=== PATIENT | male | born 1970 | race Hispanic/Latino ===

== ENCOUNTER 2020-09-20 09:12 | Emergency (ER) | payer BC ==
[2020-09-20 09:57] LABS: Absolute Lymphocytes (CBC) 1.5 K/uL (0.7-4.9); Basophils % 0.5 % (0-1.3); Lymphocytes % 29.7 % (15.3-44.8); MPV 9.9 fL (7.6-11.3); RBC Red Blood Cell Count 5.05 M/uL (4.33-5.43)
--- OUTSIDE RECORDS SUMMARY | 2020-09-20 09:59 | XMS REPORT ---
:1970 Author Organization [facility] Address [address] [place], [address] [place] [address] Care Team Providers Name Role Phone Brian Soria Unavailable [phone] PROBLEMS Type Condition ICD9-CM [id number] Onset Condition SNOMED Code Notes Code Code Dates Status Problem Erectile N52.9 Active 282281748 dysfunction Problem Mixed E78.2 Active 309936514 hyperlipidemia Problem Gastro-esophageal K21.9 Active 849572996 reflux disease without esophagitis Problem Anxiety and F41.8 Active 912395546 depression Problem Carpal tunnel G56.00 Active 83898822 syndrome ALLERGIES No Known Allergies ENCOUNTERS from 1970 to 2020-09-03 Encounter Location Date Provider Diagnosis [facility] [place] [address] Aug, Brian Soria Well adul t on routine [address] Family [address] [facility] jennifer ck Z00.00 ; [place] [address] Need for influ aurelio vaccination Z23 ; Fatigue, unspec ified type R53.83 and Encounter for administration of vaccine Z23 IMMUNIZATIONS Vaccine Route Administration Date Status Afluria IM Intramuscular Jul 04, 2019 Administered Afluria IM Intramuscular Aug 30, 2018 Administered Flucelvax - single dose syringe IM Intramuscular Sep 03, 2020 Administered SOCIAL HISTORY Tobacco Use: Social History Observation Description Date Details (start date - stop date) Never Smoker Sex Assigned At : Social History Observation Description Sex Assigned At Unknown Alcohol Screen Question Answer Notes Did you have a drink containing alcohol in the past year? No Points 0 Interpretation Negative Tobacco Use/Smoking Question Answer Notes Are you a never smoker REASON FOR REFERRAL No Information VITAL SIGNS Height 65 in Aug, Weight 148.2 lbs Aug, Temperature 97.2 degrees Fahrenheit Aug, BMI 24.66 kg/m2 Aug, Oximetry 98 % Aug, Respiratory Rate 16 /min Aug, Blood pressure systolic 102 mm Hg Aug, Blood pressure diastolic 65 mm Hg Aug, MEDICATIONS Medication SIG (Take, Route, Frequency, Duration) Start Date En d Date Status Tadalafil 20 MG 1 tablet as needed Orally for 30 day(s) Active PROCEDURES No Information RESULTS No Results REASON FOR VISIT Wellness MEDICAL (GENERAL) HISTORY Type Description Date Medical History Erectile dysfunction Medical History Anxiety and depression Medical History Carpal tunnel syndrome Medical History Gastro-esophageal reflux disease without esophagitis Surgical History No Surgical history information Goals Section No Information Health Concerns No Information MEDICAL EQUIPMENT No Information MENTAL STATUS No Information FUNCTIONAL STATUS No Information ASSESSMENTS Encounter Date Diagnosis Notes Aug, Encounter for administration of vaccine (ICD-10 - Z23) Aug, Fatigue, unspecified type (ICD-10 - R53. 83) Aug, Need for influenza vaccination (ICD-10 - Z23) Aug, Well adult on routine health check (ICD- 10 - Z00.00) PLAN OF TREATMENT Treatment Notes Assessment Notes Clinical Notes Well adult on routine health check -- Wellness Exam performe d without /Rectal examination (Asymptomatic) at this time. -- Encourage regular exercise and healthy diet. -- Take a baby aspirin daily: N/A. -- Consider having a flu vaccine every July or August. -- A complete exam is suggested yearly. -- Reminder to always use seat belts. -- It is suggested that lipids (fat and cholesterol) be checked on a yearly basis. The goal here would be to keep the bad cholesterol level (LDL) below 100. -- For colorectal cancer screening, return 1 stool hemoccult cards (test for hidden blood). The [place] [employer] also suggests colonoscopy at age 50 and then every 10 years. If interested in this test, we can refer you to a surgeon or animal hospital clerk. -- It is a good idea to periodically check the scrotum/testis for any new lumps or changes. -- It is a good idea to have a complete eye exam a minimum of every 3 years. Increased eye pressure is called glaucoma and it is a common cause of blindness. -- Encouraged on making dental appointment every 6-12 months for check-up -- Every 10 years, it is zheng to have a tuberculosis skin test (PPD) and D-Tetanus. -- Avoid excessive sun exposure. -- Apply sunscreen when outside. Check skin for any abnormal lesions/moles. Treatment Notes Test Name Order Date Lipid Panel With LDL/HDL Ratio 2020-09-03 UA/M w/rflx Culture, Comp 2020-09-03 Prostate-Specific Ag, Serum 2020-09-03 Testosterone, Free+Total LC/MS 2020-09-03 Hemoglobin A1c 2020-09-03 Comp. Metabolic Panel (14) (CMP) 2020-09-03 Uric Acid, Serum 2020-09-03 CBC With Differential/Platelet 2020-09-03 TSH reflex to T4F 2020-09-03 Next Appt Details 09/2020 TV Reason: Provider Name:Brian Soria, 2020-10-01 1 1:10:00 AM, [address], [place], [address], Insurance Providers Payer Name Payer Payer Insured Name Patient Coverage Covera ge End Address Phone Relationship to Start Date Bryon e Insured [employer] [phone] Al Bryan and Blue [id number] [place] [id number]
--- OUTSIDE RECORDS SUMMARY | 2020-09-20 09:59 | XMS REPORT | Summary of Care ---
:1970 Author Organization [facility] Address [address] [place] [id number] Care Team Providers Name Role Phone Brian Soria Primary Care Provider Encounter Details Date Type Department Care Team Description 08/10/2020 Letter (Out) [facility] Urgent Provider, [facility] Care [address] [place] [phone] Allergies Active Allergy Reactions Severity Noted Date Comments No Known Allergies 11/28/2005 documented as of this encounter (statuses as of 08/10/2020) Medications Medication Sig Dispensed Refills Start Date End Date Status PREDNISONE 20 MG ORAL as above as above 0 11/29/2005 Active TAB meclizine 25 mg Take 1 tablet by 20 tablet 0 08/13/2019 Active tabletIndications: mouth every 6 Peripheral vertigo (six) hours. involving left ear methylPREDNISolone Take by mouth 21 Each 0 08/13/2019 Active (MEDROL, KASHIF,) 4 mg SEE-INSTRUCTIONS tabletsIndications: . follow package Peripheral vertigo directions involving left ear ondansetron 4 mg Take 1 tablet by 20 tablet 0 08/13/2019 Active disintegrating mouth every 8 tabletIndications: (eight) hours as Peripheral vertigo needed for involving left ear Nausea and Vomiting (N/V). 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 Overview: ICD10 Diagnosis Term Clinical Trials Manager Utility Headache 11/29/2005 Overview: ICD10 Diagnosis Term Clinical Trials Manager Utility documented as of this encounter (statuses as of 08/10/2020) Social History Tobacco Use Types Packs/Day Years Used Date Never Assessed Sex Assigned at Date Recorded Not on file documented as of this encounter Last Filed Vital Signs Not on filedocumented in this encounter Plan of Treatment Health Maintenance Due Date Last Done Comments Depression Screening 1980 DTaP,Tdap,and Td Vaccines (1 - 1987 Tdap) COLON CANCER SCREENING ANNUAL 2018 FIT/FOBT COLON CANCER SCREENING FIT DNA 2018 EVERY 3 YEARS COLON CANCER SCREENING 2018 SIGMOIDOSCOPY EVERY 5 YEARS COLONOSCOPY 2018 Colorectal Cancer Screening 2018 Zoster Recombinant Vaccine 2018 (SHINGRIX) (1 of 2) INFLUENZA VACCINE (#1) 2020 PNEUMOCOCCAL 0-64 YEARS COMBINED Aged Out No longer eligible based on SERIES patient's age to complete this topic documented as of this encounter Results Not on filedocumented in this encounter Insurance Payer Benefit Plan Subscriber ID Effective Dates Phone Address Type / Group BCBS OF [facility] [id number] 2014-Leif [phone] [address] PPO/POS [place] t [id number] [place] [address] documented as of this encounter
--- OUTSIDE RECORDS SUMMARY | 2020-09-20 09:59 | XMS REPORT | Continuity of Care Document ---
:1970 Author Organization [facility] t Address [address] [place] [address] Care Team Providers Name Role Phone Provider, [facility] Attending Clinician Unavailable Doctor Unassigned, Name Attending Clinician Unavailable Problems This patient has no known problems. Allergies, Adverse Reactions, Alerts This patient has no known allergies or adverse reactions. Medications Ordered Filled Start Stop Current Ordering Indication Dosage Frequency Signature Comments Components Source Medication Medication Date Date Medication? Clinician (SIG) Name Name Tadalafil Tadalafil Yes Brian [address] [facility] as needed [facility] Immunizations Ordered Filled Immunization Date Status Comments Sourc e Immunization Name Name Nimisha Hernandezuria 2019-07-[address] [facility] - 00:00:00 [facility] Procedures This patient has no known procedures. Encounters Start End Encounter Admission Attending Care Care Encounter Source Date/Time Date/Time Type Type Clinicians Facility Department ID 2020-09-03 2020-09-03 Outpatient [facility] [id number] [facility] ent [facility] 2020-08-10 2020-08-10 Letter Provider, BETHANY [id number] 00:00:00 00:00:00 (Out) [facility] Urgent Health [id number] Care Surgical [id number] [facility] [id number] es [address] [place] 2020-05-31 2020-05-31 [facility] [id number] [facility] [address] 11:52:00 11:52:00 [facility] Medicine Outpati ent Clinics 2020-05-28 2020-05-28 [facility] [id number] 08:45:00 08:45:00 [facility] [place] [facility] Medicine Outpati ent Clinics 2019-12-23 2019-12-23 [facility] [id number] [address] 15:53:00 15:53:00 t [place] [facility] [place] [facility] Medicine Outpati ent Clinics 2019-08-15 2019-08-15 [facility] [id number] 10:45:00 10:45:00 t Final[facility] Outpati ent Clinics 2019-07-04 2019-07-04 [facility] [id number] 08:30:00 08:30:00 t Finalta [facility] Medicine Outpati ent Clinics 2019-07-03 2019-07-03 Orders Doctor DUNHAM [id number] 00:00:00 00:00:00 Only Unassigned, LUZ [id number] [place] [id number] 2018-11-29 2018-11-29 [facility] [id number] 09:45:00 09:45:00 t Finalta [facility] Outpati ent Clinics Results This patient has no known results.
[2020-09-20 10:13] LABS: ALT/SGPT 40 U/L (12-78); AST/SGOT 25 U/L (15-37); Albumin 3.9 g/dL (3.4-5.0); Alkaline Phosphatase 78 U/L (45-117); BUN Blood Urea Nitrogen 15 mg/dL (7-18); Bicarbonate 30 mmol/L (21-32); Bilirubin Direct 0.2 mg/dL (0-0.2); Bilirubin Total 0.7 mg/dL (0.2-1.0); Glucose Level 89 mg/dL (74-106); Lipase 133 U/L (73-393); Potassium 4.2 mmol/L (3.5-5.1); Protein, Total 7.6 g/dL (6.4-8.2); Sodium Level 141 mmol/L (136-145)
[2020-09-20 10:23] LABS: Urine Blood NEGATIVE (NEG); Urine Glucose NEGATIVE (NEG); Urine Protein NEGATIVE (NEG); Urine pH 7.5 (5.0-7.0)
--- NOTE | 2020-09-20 10:49 | RAD REPORT ---
EXAM DESCRIPTION: CTAbdomen Pelvis W Contrast - 09/20/2020 10:34 am CLINICAL HISTORY: Abdominal pain. ABD PAIN COMPARISON: No comparisons TECHNIQUE: Biphasic CT imaging of the abdomen and pelvis was performed with 100 ml non-ionic IV cont rast. All CT scans are performed using dose optimization technique as appropriate and may include automated exposure control or mA/KV adjustment according to patient size. FINDINGS: The lung bases are clear. The liver, spleen, pancreas, adrenal glands and kidneys are within normal limits. No bowel obstruction, free air, free fluid or abscess. The appendix is normal. No evidence of signi ficant lymphadenopathy. No suspicious bony findings. IMPRESSION: No acute intra-abdominal or pelvic finding.
--- NOTE | 2020-09-20 11:00 | EDPHYS ---
Physician Documentation [facility] Name: Zaki Bryan Age: 50 yrs Sex: Male : 1970 Arrival Date: 09/20/2020 Time: 09:15 Bed 16 Private MD: ED Physician Miki Guerra HPI: 09/20 09:38 This 50 yrs old Male presents to ER via Ambulatory with complaints of Back jr8 Pain, Abdominal Pain. 09:38 The patient presents with abdominal pain mid abdomen. Onset: The symptoms/episode jr8 began/occurred acutely, yesterday. The symptoms radiate to right back, the right flank. Associated signs and symptoms: Pertinent positives: nausea. The symptoms are described as sharp. Modifying factors: The symptoms are alleviated by nothing, the symptoms are aggravated by nothing. Severity of pain: At its worst the pain was moderate in the emergency department the pain is unchanged. The patient has not experienced similar symptoms in the past. The patient has not recently seen a physician. Historical: - Allergies: 09:21 No Known Allergies; tw2 - Home Meds: 09:21 None [Active]; tw2 - PMHx: 09:21 Sleep Apnea; tw2 - PSHx: 09:21 Tonsillectomy; tw2 - Immunization history:: Adult Immunizations. - Social history:: Smoking status: Patient denies any tobacco usage or history of. ROS: 09:38 Eyes: Negative for injury, pain, redness, and discharge, ENT: Negative for injury, jr8 pain, and discharge, Neck: Negative for injury, pain, and swelling, Cardiovascular: Negative for chest pain, palpitations, and edema, Respiratory: Negative for shortness of breath, cough, wheezing, and pleuritic chest pain, Back: Negative for injury and pain, MS/Extremity: Negative for injury and deformity, Skin: Negative for injury, rash, and discoloration, Neuro: Negative for headache, weakness, numbness, tingling, and seizure. 09:38 Abdomen/GI: Positive for abdominal pain, nausea, Negative for vomiting, diarrhea, constipation, abdominal cramps, abdominal distension, anorexia, dysphagia, hematemesis, black/tarry stool, rectal pain, rectal bleeding, bowel incontinence, flatulence. 09:38 : Negative for urinary symptoms. jr8 Exam: 09:38 Constitutional: This is a well developed, well nourished patient who is awake, alert, jr8 and in no acute distress. Cardiovascular: Regular rate and rhythm with a normal S1 and S2. No gallops, murmurs, or rubs. Normal PMI, no JVD. No pulse deficits. Respiratory: Lungs have equal breath sounds bilaterally, clear to auscultation and percussion. No rales, rhonchi or wheezes noted. No increased work of breathing, no retractions or nasal flaring. Back: No spinal tenderness. No costovertebral tenderness. Full range of motion. Skin: Warm, dry with normal turgor. Normal color with no rashes, no lesions, and no evidence of cellulitis. MS/ Extremity: Pulses equal, no cyanosis. Neurovascular intact. Full, normal range of motion. Neuro: Awake and alert, GCS 15, oriented to person, place, time, and situation. Cranial nerves II-XII grossly intact. Motor strength 5/5 in all extremities. Sensory grossly intact. Cerebellar exam normal. Normal gait. 09:38 Abdomen/GI: Inspection: abdomen appears normal, Bowel sounds: active, all quadrants, Palpation: soft, in all quadrants, mild abdominal tenderness, in the mid right abdomen , mass, is not appreciated, rebound tenderness, is not appreciated, voluntary guarding, is not appreciated, involuntary guarding, is not appreciated, no appreciated organomegaly, Indicators: McBurney's point is not tender, Pugh's sign is negative, Rovsing's sign is negative, Liver: tenderness, is not appreciated. Vital Signs: 09:18 BP 121 / 65; Pulse 65; Resp 18; Temp 98.1(O); Pulse Ox 99% on R/A; Weight 67.13 kg (R); tw2 Height 5 ft. 5 in. (165.10 cm); Pain 6/10; 09:18 Body Mass Index 24.63 (67.13 kg, 165.10 cm) tw2 MDM: 09:25 Patient medically screened. jr8 10:57 Data reviewed: vital signs, nurses notes, lab test result(s), radiologic studies, CT jr8 scan. Data interpreted: Pulse oximetry: on room air is 99 %. Interpretation: normal. 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 Special discussion: Based on the patient's Hx, exam, and Dx evaluation, there is no indication for emergent surgery or inpatient Tx. It is understood by the patient/guardian that if the Sx's persist or worsen they need to return immediately for re-evaluation. ED course: No acute findings noted on blood work or urine. CT negative for acute findings. Hemodynamically stable. No external findings on physical exam. Recommended rest for next day or two and to f/u with PCP. If worse or other symptoms were to arise to come back to ED for reevaluation. Patient good with plan . 09/20 09:38 Order name: Basic Metabolic Panel; Complete Time: 10:19 jr8 09/20 09:38 Order name: CBC with Diff; Complete Time: 10:00 jr8 09/20 09:38 Order name: Hepatic Function; Complete Time: 10:19 jr8 09/20 09:38 Order name: Lipase; Complete Time: 10:19 jr8 09/20 10:12 Order name: CT Abd/Pelvis - IV Contrast Only; Complete Time: 10:52 jr8 09/20 10:15 Order name: Urine Dipstick--Ancillary (enter results); Complete Time: 10:28 bd 09/20 09:38 Order name: IV Saline Lock; Complete Time: 09:46 jr8 09/20 09:38 Order name: Labs collected and sent; Complete Time: 09:46 jr8 09/20 09:38 Order name: Urine Dipstick-Ancillary (obtain specimen); Complete Time: 10:13 jr8 Administered Medications: No medications were administered Disposition: 09/21 09:21 Co-signature as Attending Physician, Miki Guerra MD I agree with the assessment and tio plan of care. Disposition: 09/20/20 10:59 Discharged to Home. Impression: Abdominal tenderness, Unspecified abdominal pain. - Condition is Stable. - Discharge Instructions: Abdominal Pain, Adult. - Prescriptions for Ibuprofen 800 mg Oral Tablet - take 1 tablet by ORAL route every 12 hours As needed take with food; 20 tablet. Zofran 4 mg Oral Tablet - take 1 tablet by ORAL route every 12 hours As needed; 20 tablet. - Medication Reconciliation Form, Thank You Letter, Antibiotic Education, Prescription Opioid Use, Work release form form. - Follow up: Private Physician; When: 2 - 3 days; Reason: Recheck today's complaints, Continuance of care, Re-evaluation by your physician. - Problem is new. - Symptoms have improved. Signatures: Dispatcher [employer] EDDC Miki Guerra MD MD cha Williams, Irene, RN RN Franco Isaacs PA PA jr8 Huma Alvarado RN RN tw2 Corrections: (The following items were deleted from the chart) 09/20 11:20 10:59 09/20/2020 10:59 Discharged to Home. Impression: Abdominal tenderness; iw Unspecified abdominal pain. Condition is Stable. Forms are Medication Reconciliation Form, Thank You Letter, Antibiotic Education, Prescription Opioid Use. Follow up: Private Physician; When: 2 - 3 days; Reason: Recheck today's complaints, Continuance of care, Re-evaluation by your physician. Problem is new. Symptoms have improved. jr8
--- NOTE | 2020-09-20 11:00 | ER ---
Nurse's Notes [facility] Name: Zaki Bryan Age: 50 yrs Sex: Male : 1970 Arrival Date: 09/20/2020 Time: 09:15 Bed 16 Private MD: Diagnosis: Abdominal tenderness;Unspecified abdominal pain Presentation: 09/20 09:18 Chief complaint: Patient states: Sunday i started having pain like something burning on tw2 my back and then around to my RIGHT lower side of my stomach and now it RIGHT side underneath my ribs, no N/V/D. Coronavirus screen: At this time, the client does not indicate any symptoms associated with coronavirus-19. Ebola Screen: Patient denies travel to an Ebola-affected area in the 21 days before illness onset. Initial Sepsis Screen: Does the patient meet any 2 criteria? No. Patient's initial sepsis screen is negative. Does the patient have a suspected source of infection? No. Patient's initial sepsis screen is negative. Risk Assessment: Do you want to hurt yourself or someone else? Patient reports no desire to harm self or others. Onset of symptoms was September 20, 2020. 09:18 Method Of Arrival: Ambulatory tw2 09:18 Acuity: RAFI 3 tw2 Triage Assessment: 09:21 General: Appears in no apparent distress. Behavior is calm, cooperative, appropriate tw2 for age. Pain: Complains of pain in right upper quadrant. Musculoskeletal: Range of motion: intact in all extremities. Historical: - Allergies: 09:21 No Known Allergies; tw2 - Home Meds: 09:21 None [Active]; tw2 - PMHx: 09:21 Sleep Apnea; tw2 - PSHx: 09:21 Tonsillectomy; tw2 - Immunization history:: Adult Immunizations. - Social history:: Smoking status: Patient denies any tobacco usage or history of. Screenin:24 Abuse screen: Denies threats or abuse. Nutritional screening: No deficits noted. tw2 Tuberculosis screening: No symptoms or risk factors identified. Fall Risk None identified. Assessment: 09:33 Reassessment: provider at bedside at this time. tw2 10:14 Reassessment: Patient appears in no apparent distress at this time. Patient and/or iw family updated on plan of care and expected duration. Pain level reassessed. Patient is alert, oriented x 3, equal unlabored respirations, skin warm/dry/pink. urine sample collected. 11:19 Reassessment: Patient appears in no apparent distress at this time. Patient states iw feeling better. Patient states symptoms have improved. Neuro: Level of Consciousness is awake, alert, obeys commands, Oriented to person, place, time, situation. Vital Signs: 09:18 BP 121 / 65; Pulse 65; Resp 18; Temp 98.1(O); Pulse Ox 99% on R/A; Weight 67.13 kg (R); tw2 Height 5 ft. 5 in. (165.10 cm); Pain 6/10; 09:18 Body Mass Index 24.63 (67.13 kg, 165.10 cm) tw2 ED Course: 09:15 Patient arrived in ED. as 09:20 Triage completed. tw2 09:21 Arm band placed on. tw2 09:22 Bed in low position. Call light in reach. Pulse ox on. NIBP on. tw2 09:24 Franco Rahman PA is PHCP. jr8 09:25 Miki Guerra MD is Attending Physician. jr8 09:45 Inserted saline lock: 20 gauge in left forearm, using aseptic technique. Blood tw2 collected. 10:14 Ruth Juarez, RN is Primary Nurse. iw 10:34 CT Abd/Pelvis - IV Contrast Only In Process Unspecified. EDMS 11:20 No provider procedures requiring assistance completed. IV discontinued, intact, iw bleeding controlled, No redness/swelling at site. Pressure dressing applied. Administered Medications: No medications were administered Outcome: 10:59 Discharge ordered by . wilver 11:20 Discharged to home ambulatory. iw 11:20 Condition: good 11:20 Discharge instructions given to patient, Instructed on discharge instructions, follow up and referral plans. medication usage, Demonstrated understanding of instructions, follow-up care, medications, Prescriptions given X 2. 11:20 Patient left the ED. iw Signatures: Dispatcher [employer] EDMS Christa Greenwood as Ruth Juarez, RN RN iw Franco Rahman PA PA jr8 Huma Alvarado RN RN tw2
[2020-09-20 14:28] VITALS: BP 121/65; TEMP 98.1; O2SAT 99
== END 2020-09-20 11:20 | disposition home or self-care (01) ==
LOC: ER 09:12
DX: R10.11 Right upper quadrant pain (principal)
CPT/HCPCS: 85025; 80048; 36415; 80076; 81003; 83690; 74177; 99284; Q9967

== ENCOUNTER 2022-10-06 07:10 | Day surgery (SDC) | payer BC ==
[2022-10-06] MEDS ORDERED: Ringers Lactate 1,000 ML IV ONE (07:26)
[2022-10-06] MEDS ORDERED: propofoL 200 MG/20 ML VIAL IV ONE ×2 (08:42)
[2022-10-06] MEDS ORDERED: LIDOCAINE 1% MPF 5 ML VIAL ONE (08:42)
--- NOTE | 2022-10-06 09:01 | ENDO RPT ---
[address], [address] COLONOSCOPY PROCEDURE REPORT EXAM DATE: 10/06/2022 PATIENT NAME: Zaki Bryan MR #: [id number] BIRTHDATE: 1970 ATTENDING: Héctor Lynne DR STATUS: outpatient CORE OVEN TENDER: Sofie Feliz RN and Nigel Wakefield [facility] INDICATIONS: The patient is a 52 yr old Male here for a colonoscopy due to colon cancer screening PROCEDURE PERFORMED: Colonoscopy with biopsy - cold polypectomy MEDICATIONS: Per Anesthesia. ESTIMATED BLOOD LOSS: None CONSENT: The patient understands the risks and benefits of the procedure and understands that these risks include, but are not limited to: sedation, allergic reaction, infection, perforation and/or bleeding. Alternative means of evaluation and treatment include, among others: physical exam, x-rays, and/or surgical intervention. The patient elects to proceed with this endoscopic procedure. DESCRIPTION OF PROCEDURE: During intra-op preparation period all mechanical medical equipment was checked for proper function. Hand hygiene and appropriate measures for infection prevention was taken. Procedure, possible complications, alternatives including, but not limited to possibility of bleeding, perforation, tear, infection, sepsis, need for surgery, need for blood transfusion, were explained to the patient. After the risks, benefits and alternatives of the procedure were thoroughly explained, Informed consent was verified, confirmed and timeout was successfully executed by the treatment team. The patient was placed in the left lateral position. A digital rectal exam was performed and revealed internal hemorrhoids and A digital rectal exam was performed and revealed an enlarged prostate. After appropriate level of anesthesia, the scope was passed. The EC-[id number] ([id number]) endoscope was introduced through the anus and advanced to the cecum, which was identified by both the appendix and ileocecal valve. The quality of the prep was fair. The instrument was then slowly withdrawn as the colon was fully examined. Scope withdrawal time was 11 minutes. COLON FINDINGS: Two smooth sessile polyps ranging between 3-5mm in size were found at the cecum and in the rectum. A polypectomy was performed with cold forceps. The resection was complete, the polyp tissue was completely retrieved and sent to histology. Moderate sized internal hemorrhoids were found. Retroflexed views revealed no abnormalities. The scope was then completely withdrawn from the patient and the procedure terminated. ADVERSE EVENTS: There were no complications. IMPRESSIONS: 1. Two sessile polyps ranging between 3-5mm in size were found at the cecum and in the rectum; polypectomy was performed in a piecemeal fashion with cold forceps 2. Moderate sized internal hemorrhoids RECOMMENDATIONS: 1. avoid NSAIDS for 2 weeks 2. await biopsy results 3. fiber rich diet 4. follow-up: office 2 week(s) 5. Monitor for any evidence of rectal bleeding. 6. yearly hemoquant 7. hemorrhoidal hygiene 8. increase dietary water RECALL: for Colonoscopy, pending biopsy results. Héctor Lynne DR eSigned: Héctor Lynne DR 10/06/2022 9:01 AM cc: CPT CODES: ICD9 CODES: PATIENT NAME: Zaki Bryan MR#: [id number]
[2022-10-06 11:04] VITALS: BP 91/61; TEMP 97; O2SAT 100
== END 2022-10-06 09:45 | disposition home or self-care (01) ==
LOC: OR 07:10
PROVIDERS: ATTEND Surgery
PROC: 0DBP8ZX Excision of Rectum, Via Natural or Artificial Opening Endoscopic, Diagnostic (ICD-10-PCS; 2022-10-06)
PROC: 0DBH8ZX Excision of Cecum, Via Natural or Artificial Opening Endoscopic, Diagnostic (ICD-10-PCS; principal; 2022-10-06 08:45)
DX: Z12.11 Encounter for screening for malignant neoplasm of colon (principal); D12.0 Benign neoplasm of cecum; K64.8 Other hemorrhoids
CPT/HCPCS: 88305; 45380; J2704 ×2; J2001; J7120